=== PATIENT | female | born 1970 | race American Indian/Alaskan Native ===

== ENCOUNTER 2016-05-20 00:42 | Emergency (ER) | payer MEDICAID ==
[2016-05-20 01:07] VITALS: BP 148/100
[2016-05-20 02:16] LABS: Anion Gap 19 mmol/L; Blood Urea Nitrogen 12 mg/dL (7-17); Calcium 9.1 mg/dL (8.4-10.2); Carbon Dioxide 24 mmol/L (22-30); Chloride 102.1 mmol/L (98-107); Glucose 101 mg/dL (65-100); Potassium 3.7 mmol/L (3.6-5.0); Sodium 141 mmol/L (137-145)
[2016-05-20 02:54] LABS: Basophils % (Auto) 0.4 % (0.0-1.8); Eosinophils % (Auto) 1.1 % (0.0-4.3); Hematocrit 38.1 % (30.3-42.9); Hemoglobin 12.6 gm/dl (10.1-14.3); Mean Corpuscular HGB Conc 33 % (30-34); Mean Corpuscular Hemoglobin 27 pg (28-32); Mean Corpuscular Volume 80 fl (79-97); Platelet Count 302 K/mm3 (140-440); Red Blood Count 4.76 M/mm3 (3.65-5.03); Red Cell Distribution Width 15.7 % (13.2-15.2); White Blood Count 10.5 K/mm3 (4.5-11.0)
--- NOTE | 2016-05-20 19:44 | ED Elopement Review ---
ED Pt Elopement review - Results review Lab results: Laboratory Tests 05/20/16 05/20/16 01:36 01:36 WBC 10.5 RBC 4.76 Hgb 12.6 Hct 38.1 MCV 80 MCH 27 L MCHC 33 RDW 15.7 H Plt Count 302 Lymph % (Auto) 24.5 [place] % (Auto) 5.8 Eos % (Auto) 1.1 Baso % (Auto) 0.4 Lymph # 2.6 [place] # 0.6 Eos # 0.1 Baso # 0.0 Seg Neutrophils % 68.2 Seg Neutrophils # 7.2 Sodium 141 Potassium 3.7 Chloride 102.1 Carbon Dioxide 24 Anion Gap 19 BUN 12 Creatinine 0.6 L Estimated GFR > 60 BUN/Creatinine Ratio 20.00 Glucose 101 H Calcium 9.1 - Call Back decision Pt Call Back Decision: No action required
== END 2016-05-20 05:05 | disposition left against medical advice (07) ==
LOC: ED 00:42
DX: M79.1 Myalgia (principal); Z53.21 Procedure and treatment not carried out due to patient leaving prior to being seen by health care provider
CPT/HCPCS: 36415; 80048; 85025

== ENCOUNTER 2018-05-04 14:42 | Emergency (ER) | payer MEDICARE ==
[2018-05-04] MEDS ORDERED: ZOFRAN IV ONE (16:20)
[2018-05-04] MEDS ORDERED: SUBLIMAZE IV ONE ×2 (16:20→18:03)
--- NOTE | 2018-05-04 16:26 | Emergency Department Report ---
HPI - General Chief Complaint: Back Pain/Injury Time Seen by Provider: 05/04/18 16:14 - HPI HPI: Room 7 The patient is a 47-year-old female presented with a chief complaint of back pain and right lower extremity pain. The patient states one week she's had pain in the right side of her lower back radiating down her right lower extremity and the right side of her abdomen. Patient states pain worsened 2 days ago. Patient states she went to [facility] yesterday and had an x-ray performed of her lumbar spine which is negative. Patient was discharged with pain medication referred to orthopedic surgeon. Patient states she initially n oticed decreased urinary output but has since resolved. Patient denies dysuria states she is uncertain if she's had hematuria because she has not looked. Patient denies history of fever nausea or vomiting. The patient gets her pain score of "20/10." Patient states she was given a prescription for Percocet yesterday Location: [See above] Duration: One week Quality: Pain Severity: "20/10." Modifying factors: [see above] Context: [see above] Mode of transportation: [not driving] ED Past Medical Hx - Past Medical History Hx Hypertension: Yes Hx CVA: Yes (resid. left-sided wknss; ambulates with cane) Hx Diabetes: Yes Hx Deep Vein Thrombosis: Yes Hx Pulmonary Embolism: Yes Hx Asthma: Yes Additional medical history: LUPUS , VERTIGO , fibromyalgia, DM, HTN, Depression - Surgical History Additional Surgical History: Hysterectomy, knee surgery. removal of 3 dvts - Family History Family history: no significant - Social History Smoking Status: Never Smoker Substance Use Type: Alcohol (occasional) - Medications Home Medications: Home Medications Medication Instructions Recorded Confirmed Last Taken Type ALBUTEROL Inhaler (OR & NICU) 2 puff IH QID PRN 10/31/13 04/27/15 Unknown History [ProAir HFA Inhaler] Clotrimazole/Betamethasone Dip 45 gm TP QDAY PRN 10/31/13 04/27/15 Unknown History [Clotrimazole-Betamethasone Crm] EPINEPHrine (NF) [Epipen (Nf)] 0.3 mg IM PRN PRN 10/31/13 04/27/15 Unknown History FLUoxetine [PROzac] 10 mg PO QDAY 10/31/13 04/27/15 Unknown History Loratadine [Claritin RAPDIS] 10 mg PO QDAY PRN 10/31/13 04/27/15 Unknown History Losartan/Hydrochlorothiazide 1 each PO QDAY 10/31/13 04/27/15 Unknown History [Hyzaar 50-12.5 TAB] Metoprolol [Lopressor TAB] 50 mg PO BID 10/31/13 04/27/15 Unknown History Pregabalin [Lyrica] 25 mg PO TID 10/31/13 04/27/15 Unknown History Tizanidine HCl [tiZANidine] 4 mg PO QDAY 10/31/13 04/27/15 Unknown History risperiDONE [RisperDAL] 1 mg PO QDAY 10/31/13 04/27/15 Unknown History Meclizine [Antivert] 12.5 mg PO BID PRN 11/01/13 04/27/15 Unknown History Torsemide [Demadex] 20 mg PO QDAY 11/01/13 04/27/15 Unknown History HYDROcodone/APAP 5-325 [[place] 1 each PO Q6H PRN #10 tablet 05/10/14 04/27/15 Unknown Rx 5-325 mg TAB] Gabapentin [Neurontin] 600 mg PO Q8HR 10/09/14 04/27/15 Unknown History Meloxicam [Mobic] 7.5 mg PO QDAY 10/09/14 04/27/15 Unknown History diazePAM [Diazepam] 10 mg PO QDAY PRN 10/09/14 04/27/15 Unknown History Rivaroxaban [Xarelto] 20 mg PO DAILY 12/01/14 04/27/15 Unknown History Ammonium Lactate [Lac-Hydrin 1 applicatio TP QDAY 04/27/15 04/27/15 Unknown History Lotion] Mupirocin [Bactroban 2% CREAM] 1 applicatio TP QDAY 04/27/15 04/27/15 Unknown History metFORMIN [Glucophage] 1,000 mg PO BID 04/27/15 04/27/15 Unknown History tiZANidine [Zanaflex] 4 mg PO BID 04/27/15 04/27/15 Unknown History Prednisone [predniSONE 5 mg (6-Day 5 mg PO .TAPER #1 tab.ds.pk 04/28/15 Unknown Rx Pack, 21 Tabs)] HYDROcodone/APAP 5-325 [[place] 1 each PO Q6HR PRN #10 tablet 12/16/17 Unknown Rx 5/325] ED Review of Systems ROS: Stated complaint: BACK PAIN Other details as noted in HPI Constitutional: denies: fever Eyes: denies: eye pain ENT: denies: throat pain Respiratory: no symptoms reported Cardiovascular: denies: chest pain Endocrine: no symptoms reported Gastrointestinal: abdominal pain. denies: nausea, vomiting Genitourinary: denies: dysuria Musculoskeletal: back pain Neurological: denies: headache Physical Exam - Physical Exam Vital Signs: Vital Signs 05/04/18 05/04/18 05/04/18 15:02 15:08 15:15 Temperature 98.7 F Pulse Rate 74 76 Respiratory 16 10 L 17 Rate Blood Pressure Blood Pressure 122/88 [Left] O2 Sat by Pulse 100 98 Oximetry 05/04/18 05/04/18 05/04/18 15:22 15:31 15:45 Temperature 98.7 F Pulse Rate 74 77 76 Respiratory 16 17 12 Rate Blood Pressure 122/88 Blood Pressure [Left] O2 Sat by Pulse 98 97 98 Oximetry Physical Exam: GENERAL: The patient is well-developed well-nourished female lying on stretcher in left lateral decubitus position appearing to be in mild discomfort. [] HEENT: Normocephalic. Atraumatic. Extraocular motions are intact. Patient has moist mucous membranes. NECK: Supple. Trachea midline CHEST/LUNGS: Clear to auscultation. There is no respiratory distress noted. HEART/CARDIOVASCULAR: Regular. There is no tachycardia. There is no gallop rub or murmur. ABDOMEN: Abdomen is soft, nontender. Patient has normal bowel sounds. There is no abdominal distention. SKIN: There is no rash. There is no edema. There is no diaphoresis. NEURO: The patient is awake, alert, and oriented. The patient is cooperative. The patient has normal speech MUSCULOSKELETAL: There is positive straight leg raise test on the right. There is no axial tenderness to palpation. There is no evidence of acute injury. ED Course Vital Signs 05/04/18 05/04/18 05/04/18 15:02 15:08 15:15 Temperature 98.7 F Pulse Rate 74 76 Respiratory 16 10 L 17 Rate Blood Pressure Blood Pressure 122/88 [Left] O2 Sat by Pulse 100 98 Oximetry 05/04/18 05/04/18 05/04/18 15:22 15:31 15:45 Temperature 98.7 F Pulse Rate 74 77 76 Respiratory 16 17 12 Rate Blood Pressure 122/88 Blood Pressure [Left] O2 Sat by Pulse 98 97 98 Oximetry ED Medical Decision Making - Lab Data Result diagrams: 05/04/18 17:13 05/04/18 17:13 Laboratory Tests 05/04/18 05/04/18 05/04/18 17:13 17:13 Unknown WBC 7.9 RBC 4.21 Hgb 11.4 Hct 34.8 MCV 83 MCH 27 L MCHC 33 RDW 15.2 Plt Count 266 Lymph % (Auto) 29.2 [place] % (Auto) 8.5 H Eos % (Auto) 2.0 Baso % (Auto) 0.5 Lymph # 2.3 [place] # 0.7 Eos # 0.2 Baso # 0.0 Seg Neutrophils % 59.8 Seg Neutrophils # 4.7 Sodium 138 Potassium 3.7 Chloride 98.7 Carbon Dioxide 29 Anion Gap 14 BUN 17 Creatinine 0.7 Estimated GFR > 60 BUN/Creatinine Ratio 24 Glucose 102 H Calcium 9.1 Total Bilirubin 0.20 AST 24 ALT 25 Alkaline Phosphatase 59 Total Protein 6.8 Albumin 3.7 L Albumin/Globulin Ratio 1.2 Urine Color Straw Urine Turbidity Clear Urine pH 7.0 Ur Specific [place] 1.012 Urine Protein <15 mg/dl Urine Glucose (UA) Neg Urine Ketones Neg Urine Blood Neg Urine Nitrite Neg Urine Bilirubin Neg Urine Urobilinogen < 2.0 Ur Leukocyte Esterase Neg Urine WBC (Auto) 1.0 Urine RBC (Auto) 2.0 U Epithel Cells (Auto) < 1.0 Urine Mucus Few - Radiology Data Radiology results: report reviewed (CT abdomen and pelvis), image reviewed (CT abdomen and pelvis) CT abdomen and pelvis (read by radiologist)-no CT evidence of urinary tract calculus or obstruction. Slight sigmoid diverticulosis without evidence of acute inflammation. IVC filter in place with distal legs injected into the adjacent retroperitoneal fat. - Differential Diagnosis sciatica, renal colic, pyelonephritis Critical care attestation.: If time is entered above; I have spent that time in minutes in the direct care of this critically ill patient, excluding procedure time. ED Disposition Clinical Impression: Sciatica Disposition: DC-01 TO HOME OR SELFCARE Is pt being admited?: No Does the pt Need Aspirin: No Condition: Stable Instructions: Lumbar Radiculopathy (ED) Additional Instructions: Return to the emergency department immediately should you develop worsening symptoms, fever, inability to tolerate food or liquid or any other concerns. Referrals: PRIMARY CARE, [Primary Care Provider] - 3-5 Days WILLAM COATES MD [Staff Physician] - [facility] (Dr. Coates is an orthopedic surgeon. Please follow-up with further evaluation) Time of Disposition: 19:41
[2018-05-04 17:34] LABS: Basophils % (Auto) 0.5 % (0.0-1.8); Eosinophils # (Auto) 0.2 K/mm3 (0.0-0.4); Hematocrit 34.8 % (30.3-42.9); Hemoglobin 11.4 gm/dl (10.1-14.3); Lymphocytes # (Auto) 2.3 K/mm3 (1.2-5.4); Lymphocytes % (Auto) 29.2 % (13.4-35.0); Mean Corpuscular HGB Conc 33 % (30-34); Mean Corpuscular Volume 83 fl (79-97); Monocytes # (Auto) 0.7 K/mm3 (0.0-0.8); Monocytes % (Auto) 8.5 % (0.0-7.3); Platelet Count 266 K/mm3 (140-440); Red Blood Count 4.21 M/mm3 (3.65-5.03); Red Cell Distribution Width 15.2 % (13.2-15.2)
[2018-05-04 17:52] LABS: Alanine Aminotransferase 25 units/L (7-56); Albumin 3.7 g/dL (3.9-5); BUN/Creatinine Ratio 24; Blood Urea Nitrogen 17 mg/dL (7-17); Calcium 9.1 mg/dL (8.4-10.2); Hemolysis Index 10
--- NOTE | 2018-05-04 18:17 | Cat Scan Report ---
PROCEDURE: CT ABDOMEN PELVIS WO CON TECHNIQUE: CT examination of the abdomen without IV contrast CT examination of the pelvis without IV contrast HISTORY: right flank pain COMPARISONS: None FINDINGS: Large body habitus limits the examination. Increased soft tissue attenuates the CT x-ray beam and deg rades image quality. No acute lung base finding. Degenerative changes slightly in the regional skeleton. No acute fracture . Normal noncontrast appearance of the liver, gallbladder, adrenals, pancreas, and spleen. Normal meño iber abdominal aorta and IVC. IVC contains a filter with legs projected in the adjacent retroperitoneal fat. No evidence of renal calculus or hydronephrosis. No calculus or distention in the visible ureteral se gments. Pelvic ureters partly obscured by adjacent structures. Very small fat-containing umbilical hernia. No inguinal hernia. No retroperitoneal adenopathy. No richi dence of mesenteric mass. Normal-appearing stomach and duodenum. No small bowel distention in the abd omen and pelvis. No pelvic free fluid. Normal-appearing urinary bladder and rectum. Uterus is not visible which may be surgically absent. No definite adnexal abnormality. Slight sigmoid diverticulosis without evidence of acute inflammation. No gross ascites, free air, or colonic distention. Normal-appearing cecum, terminal ileum, and append ix. IMPRESSION: No CT evidence of urinary tract calculus or obstruction Slight sigmoid diverticulosis without evidence of acute inflammation IVC filter in place with distal legs projected into the adjacent retroperitoneal fat This document is electronically signed by Nino Valdez MD., May 04 2018 06:15:02 PM ET
[2018-05-04 19:10] LABS: Bilirubin,Urine NEG (Negative); Blood,Urine NEG (Negative); Color,Urine Straw (Yellow); Mucus,Urine FEW /HPF; Protein,Urine <15 mg/dL mg/dL (Negative); Urobilinogen,Urine < 2.0 mg/dL (<2.0)
[2018-05-04 20:43] VITALS: BP 132/71
== END 2018-05-04 21:03 | disposition home or self-care (01) ==
LOC: ED 14:42
DX: M54.41 Lumbago with sciatica, right side (principal); I10 Essential (primary) hypertension; E11.9 Type 2 diabetes mellitus without complications; J45.909 Unspecified asthma, uncomplicated; M32.9 Systemic lupus erythematosus, unspecified; M79.7 Fibromyalgia; Z88.5 Allergy status to narcotic agent; Z88.6 Allergy status to analgesic agent; Z91.041 Radiographic dye allergy status; Z91.040 Latex allergy status; Z91.010 Allergy to peanuts; Z86.718 Personal history of other venous thrombosis and embolism; Z86.711 Personal history of pulmonary embolism; Z90.710 Acquired absence of both cervix and uterus
CPT/HCPCS: 36415; 74176; 80053; 81001; 85025; 96374; 96375; 96376; 99284; J2405; J3010

== ENCOUNTER 2020-06-24 10:54 | Emergency (ER) | payer MEDICARE ==
--- NOTE | 2020-06-24 11:08 | Event Note ---
ED Screening Note Date of service: 06/24/20 Time: 11:05 ED Screening Note: 49-year-old female patient with history of multiple medical problems including recurrent venous thromboembolism (currently on Xarelto) presents to the emergency department with complaints of headache and syncope starting this morning. Patient states she passed out at home after receiving her COVID-19 vaccine. Syncope was preceded by prodromal symptoms and a mild headache. She is unsure whether or not she hit her head when she lost consciousness. The episode was not witnessed. States her headache is worse after the syncope. Hypertensive in triage. General: Awake, appropriately interactive. Tearful, anxious. Neck: Supple. Full range of motion intact. Cardiovascular: Normal peripheral perfusion. Pulmonary: No respiratory distress. Patient is speaking normally without use of accessory muscles. Skin: No apparent rashes or lesions. Neurological: No facial asymmetry. Speech is clear. Follows commands. Patient is alert and oriented. Musculoskeletal: Moves all four extremities spontaneously with normal range of motion. Psych: Cooperative. Appropriate mood and affect. I have greeted and performed a focused rapid initial assessment of this patient. A comprehensive ED assessment and evaluation of the patient, analysis of all test results, and completion of the medical decision-making process will be conducted by additional ED providers. This initial assessment/diagnostic orders/clinical plan/treatment(s) is/are subject to change based on patients health status, clinical progression and re-assessment. Further treatment and workup at subsequent clinical provider's discretion. Patient/guardian urged not to elope from the ED as their condition may be serious if not clinically assessed and managed.
--- NOTE | 2020-06-24 11:38 | XRay Report ---
CHEST 2 VIEWS INDICATION / CLINICAL INFORMATION: syncope. COMPARISON: None available. FINDINGS: SUPPORT DEVICES: None. HEART / MEDIASTINUM: No significant abnormality. LUNGS / PLEURA: No significant pulmonary or pleural abnormality. No pneumothorax. ADDITIONAL FINDINGS: No significant additional findings. IMPRESSION: 1. No acute findings. Signer Name: Ector Shelton MD Signed: 06/24/2020 11:34 AM Workstation Name: [id number]
[2020-06-24 11:47] LABS: Basophils % (Auto) 0.5 % (0.0-1.8); Eosinophils # (Auto) 0.1 K/mm3 (0.0-0.4); Eosinophils % (Auto) 1.8 % (0.0-4.3); Hematocrit 35.5 % (30.3-42.9); Lymphocytes # (Auto) 2.1 K/mm3 (1.2-5.4); Lymphocytes % (Auto) 33.4 % (13.4-35.0); Mean Corpuscular HGB Conc 34 % (30-34); Mean Corpuscular Volume 86 fl (79-97); Monocytes # (Auto) 0.5 K/mm3 (0.0-0.8); Monocytes % (Auto) 7.6 % (0.0-7.3); Platelet Count 262 K/mm3 (140-440); Red Blood Count 4.11 M/mm3 (3.65-5.03); Red Cell Distribution Width 15.5 % (13.2-15.2)
[2020-06-24 12:08] LABS: Alanine Aminotransferase 18 units/L (7-56); Blood Urea Nitrogen 12 mg/dL (7-17); Calcium 8.8 mg/dL (8.4-10.2); Hemolysis Index 4
--- NOTE | 2020-06-24 12:09 | Cat Scan Report ---
CT HEAD WITHOUT CONTRAST INDICATION / CLINICAL INFORMATION: syncope + headache; on Xarelto. TECHNIQUE: All CT scans at this location are performed using CT dose reduction for ALARA by means of automated e xposure control. COMPARISON: None available. FINDINGS: No acute intracranial hemorrhage. Ventricles are normal in size without midline shift or mass effect. No extra-axial fluid collection is seen. Visualized sinuses are clear visualized orbits appear abdoul l. Sella is unremarkable. ADDITIONAL FINDINGS: None. IMPRESSION: 1. No acute intracranial abnormality. Signer Name: Fernando Chapa MD Signed: 06/24/2020 12:05 PM Workstation Name: [id number]
[2020-06-24 12:19] LABS: BUN/Creatinine Ratio 17
--- NOTE | 2020-06-25 17:44 | Electrocardiograph Report ---
[facility] Test Date: 2020-06-24 Test Time: 11:07:20 Pat Name: DORI WEI Department: Room: Gender: F [employer] Equipment [employer]: AMRIK : 1970 Requested By: DIANN CALIXTO Order Number: [id number] Reading MD: Norm Garcia Measurements Intervals [place] Rate: 81 P: 4 VT: 187 QRS: 8 QRSD: 89 T: 33 QT: 404 QTc: 470 Interpretive Statements Sinus rhythm No previous ECG available for comparison Electronically Signed On 06-25-2020 17:44:18 EDT by Norm Garcia
== END 2020-06-24 15:00 | disposition left against medical advice (07) ==
LOC: ED 10:54
DX: R51.9 Headache, unspecified (principal); R55 Syncope and collapse; Z53.21 Procedure and treatment not carried out due to patient leaving prior to being seen by health care provider
CPT/HCPCS: 36415; 70450; 71046; 80053; 83735; 84484; 85025; 93005

== ENCOUNTER 2021-04-29 09:23 | Outpatient (CLI) | payer MEDICARE ==
--- NOTE | 2021-04-29 12:33 | Nuclear Medicine Report ---
CHEST 2 VIEWS INDICATION: LUNG SCAN PROTOCOL. COMPARISON: 06/24/2020 FINDINGS: Support devices: None. Heart: Within normal limits. Lungs/pleura: No acute air space or interstitial disease. No pleural abnormality or pneumothorax. Additional findings: None. IMPRESSION: No acute findings. NUCLEAR MEDICINE PERFUSION SCAN INDICATION: LUNG SCAN PROTOCOL CORRELATION: Chest x-ray performed the same day RADIOPHARMACEUTICAL: Perfusion: 5.3 mCi Tc-99m MAA given IV FINDINGS: Perfusion images show symmetric and uniform radiotracer distribution throughout bilateral lung zones with no evidence of unmatched segmental perfusion defects. Normal cardiac silhouette. IMPRESSION: Low probability perfusion scan for pulmonary embolism. Signer Name: Lasha Powell Jr, MD Signed: 04/29/2021 12:28 PM Workstation Name: [id number]
== END 2021-04-29 09:24 | disposition home or self-care (01) ==
LOC: CT 09:23
PROVIDERS: ATTEND Internal Medicine Cardiovascular Disease
DX: I26.99 Other pulmonary embolism without acute cor pulmonale (principal); R06.02 Shortness of breath; Z86.711 Personal history of pulmonary embolism
CPT/HCPCS: 71046; 78580; A9540